=== PATIENT | male | born 1985 | race Caucasian/White ===

== ENCOUNTER 2023-03-26 06:08 | Emergency (ER) | payer BC ==
[~2023-03-26] VITALS: Ht 182.8 cm; Wt 129.3 kg
[2023-03-26] MEDS ORDERED: CIPRODEX 0.3%-7.5 ML OT (06:49)
[2023-03-26] MEDS ORDERED: AMOX-CLAV 875-1 EACH PO (06:49)
== END 2023-03-26 07:13 | disposition home or self-care (01) ==
LOC: ED 06:08
DX: H66.91 Otitis media, unspecified, right ear (principal); H60.91 Unspecified otitis externa, right ear; Z88.2 Allergy status to sulfonamides; Z87.891 Personal history of nicotine dependence

== ENCOUNTER → 2023-10-13 | Outpatient (CLI) | payer BC ==
[~2023-10-13] MED LIST: AMOX-CLAV 875-1 EACH PO; CIPRODEX 0.3%-7.5 ML OT
[2023-10-13 11:05] LABS: BASO # 0.1 10*3/uL (0.0-0.1); BASO % 0.8 % (0.0-1.0); EOS # 0.4 10*3/uL (0.0-0.4); EOS % 6.8 % (1.0-4.0); HEMATOCRIT 43.5 % (42.0-52.0); LYMPH # 2.6 10*3/uL (1.3-4.4); LYMPH % 42.6 % (27.0-41.0); MEAN CELL VOLUME 82.7 fl (80.0-94.0); MEAN CORPUSCULAR HGB 27.8 pg (27.0-31.0); MEAN CORPUSCULAR HGB CONC 33.6 g/dl (33.0-37.0); MEAN PLATELET VOLUME 10.4 fl (9.6-12.3); MONO # 0.6 10*3/uL (0.1-1.0); MONO % 9.1 % (3.0-9.0); NEUT # 2.4 10*3/uL (2.3-7.9); NEUT % 40.4 % (47.0-73.0); PLATELET COUNT AUTOMATED 281 10*3/uL (130-400); RED BLOOD COUNT 5.26 10*6/uL (4.50-5.90); RED CELL DISTRI WIDTH 12.3 % (0-14.5)
[2023-10-13 11:32] LABS: ALKALINE PHOSPHATASE 58 U/L (46-116); BUN 16 mg/dl (9-23); CHLORIDE 104 mmol/L (98-107); CHOLESTEROL 153 mg/dL (<200); LDL CHOLESTEROL 80 mg/dL (9-159); LIPASE 59 U/L (12-53); POTASSIUM 3.7 mmol/L (3.4-5.1); SGPT/ALT 28 U/L (5-49); TRIGLYCERIDES 92 mg/dl (<150)
== END | disposition home or self-care (01) ==
LOC: LAB 09:37
PROVIDERS: ATTEND Nurse Practitioner Family
DX: R06.02 Shortness of breath (principal); R93.89 Abnormal findings on diagnostic imaging of other specified body structures; Z86.16 Personal history of COVID-19

== ENCOUNTER → 2023-10-23 | Outpatient (CLI) | payer BC ==
[~2023-10-23] MED LIST changes: +Albuterol Sulfate 2.5 MG/3 ML VIAL NEB ONE
== END | disposition home or self-care (01) ==
LOC: LAB 01:32 → CP 08:30
PROVIDERS: ATTEND Nurse Practitioner Family
DX: J44.9 Chronic obstructive pulmonary disease, unspecified (principal); K76.0 Fatty (change of) liver, not elsewhere classified; R79.89 Other specified abnormal findings of blood chemistry; R93.89 Abnormal findings on diagnostic imaging of other specified body structures; R74.8 Abnormal levels of other serum enzymes; Z86.16 Personal history of COVID-19

== ENCOUNTER 2024-03-31 11:31 | Emergency (ER) | payer MEDICAID ==
[~2024-03-31] VITALS: Wt 132.9 kg
[~2024-03-31 11:31] MED LIST changes: -Albuterol Sulfate 2.5 MG/3 ML VIAL NEB ONE
[2024-03-31] MEDS ORDERED: Lidocaine Hydrochloride 30 ML VIAL IM ONE (12:55)
[2024-03-31] MEDS ORDERED: Tdap Vaccine 0.5 ML SYR (Adult Vaccine) IM ONE (13:00)
[2024-03-31] MEDS ORDERED: VIBRAMYCIN100 MG PO (13:55)
== END 2024-03-31 14:19 | disposition home or self-care (01) ==
LOC: ED 11:31
DX: L02.415 Cutaneous abscess of right lower limb (principal); Z88.2 Allergy status to sulfonamides; Z79.2 Long term (current) use of antibiotics